=== PATIENT | female | born 1995 | race African-American/Black ===

== ENCOUNTER 2017-12-16 12:17 | Emergency (ER) | payer SELFPAY ==
[2017-12-16 13:15] LABS: INFLUENZA A PATIENT NEGATIVE (NEGATIVE); INFLUENZA B PATIENT NEGATIVE (NEGATIVE); OBC FLU VALID
[2017-12-16] MEDS: IV NORMAL SALINE 1000ML BAG 1,000 ML IV ×2 (13:45)
[2017-12-16 14:35] LABS: FECAL OB PT NEGATIVE (NEG); NEG OBC FOB NEG; POS OBC FOB POS
[2017-12-16 15:02] LABS: ADD MAN DIFF? NO
[2017-12-16 15:05] LABS: BASO % 0 % (0-3); EOS # 0.1 x10^3/uL (0.0-0.7); EOS % 1 % (0-3); HEMATOCRIT 41.2 % (36.0-47.0); HEMOGLOBIN 13.8 g/dL (12.0-15.5); LYMPH # 1.4 x10^3/uL (1.0-4.8); LYMPH % 15 % (24-48); MEAN CORPUSCULAR HEMOGLOBIN 29 pg (25-35); MEAN CORPUSCULAR HGB CONC 33 g/dL (31-37); MEAN CORPUSCULAR VOLUME 88 fL (79-100); MONO # 0.7 x10^3/uL (0.0-1.1); MONO % 8 % (0-9); NEUT # 7.2 x10^3uL (1.8-7.7); NEUT % 77 % (31-73); PLATELET COUNT 236 x10^3/uL (140-400); RED CELL DISTRIBUTION WIDTH 12.2 % (11.5-14.5); WHITE BLOOD COUNT 9.3 x10^3/uL (4.0-11.0)
== END 2017-12-16 15:43 | disposition home or self-care (01) ==
LOC: ER 12:17
DX: B34.9 Viral infection, unspecified (principal); J45.909 Unspecified asthma, uncomplicated; E03.9 Hypothyroidism, unspecified; Z88.6 Allergy status to analgesic agent
CPT/HCPCS: 36415; 82274; 85025; 87804; 87804-59; 96360; 96361; 99285-25; J7030

== ENCOUNTER 2018-01-30 19:24 | Emergency (ER) | payer SELFPAY ==
[2018-01-30 20:16] LABS: URINE HCG POC HCG NEGATIVE (Negative)
[2018-01-30 20:20] LABS: BILIRUBIN,URINE NEGATIVE (NEG); CLARITY,URINE CLEAR; COLOR,URINE YELLOW; GLUCOSE,URINE NEGATIVE (NEG); NITRITE,URINE NEGATIVE (NEG); PH,URINE 6.5; PROTEIN,URINE NEGATIVE (NEG-TRACE)
[2018-01-30 20:26] LABS: BACTERIA,URINE 0 /HPF (0-FEW); SQUAMOUS EPITHELIAL CELL,UR FEW /LPF; WBC,URINE 0 /HPF (0-4)
[2018-01-30 20:58] LABS: ADD MAN DIFF? NO
[2018-01-30 21:00] LABS: BASO % 0 % (0-3); EOS # 0.2 x10^3/uL (0.0-0.7); EOS % 1 % (0-3); HEMATOCRIT 39.6 % (36.0-47.0); HEMOGLOBIN 13.4 g/dL (12.0-15.5); LYMPH # 2.4 x10^3/uL (1.0-4.8); LYMPH % 21 % (24-48); MEAN CORPUSCULAR HEMOGLOBIN 30 pg (25-35); MEAN CORPUSCULAR HGB CONC 34 g/dL (31-37); MEAN CORPUSCULAR VOLUME 87 fL (79-100); MONO # 1.1 x10^3/uL (0.0-1.1); MONO % 9 % (0-9); NEUT # 7.8 x10^3uL (1.8-7.7); NEUT % 68 % (31-73); PLATELET COUNT 289 x10^3/uL (140-400); RED BLOOD COUNT 4.54 x10^6/uL (3.50-5.40); RED CELL DISTRIBUTION WIDTH 12.7 % (11.5-14.5); WHITE BLOOD COUNT 11.5 x10^3/uL (4.0-11.0)
[2018-01-30 21:09] LABS: ANION GAP 7 (6-14); BLOOD UREA NITROGEN 10 mg/dL (7-20); BUN/CREATININE RATIO 14 (6-20); CALCIUM 9.3 mg/dL (8.5-10.1); CARBON DIOXIDE 27 mmol/L (21-32); CHLORIDE 105 mmol/L (98-107); CREATININE 0.7 mg/dL (0.6-1.0); GFR 127.8; GLUCOSE 103 mg/dL (70-99); POTASSIUM 3.9 mmol/L (3.5-5.1); SODIUM 139 mmol/L (136-145)
[2018-01-30 21:15] LABS: ALBUMIN 3.6 g/dL (3.4-5.0); ALBUMIN/GLOBULIN RATIO 0.8 (1.0-1.7); ALK PHOS 110 U/L (46-116); ALT (SGPT) 27 U/L (14-59); AST (SGOT) 17 U/L (15-37); TOTAL BILIRUBIN 0.2 mg/dL (0.2-1.0); TOTAL PROTEIN 7.9 g/dL (6.4-8.2)
[2018-02-03 15:28] LABS: CHLAMYDIA PROBE Negative (Negative); GC PROBE Negative (Negative)
== END 2018-01-30 23:25 | disposition home or self-care (01) ==
LOC: ER 19:24
DX: N93.9 Abnormal uterine and vaginal bleeding, unspecified (principal); J45.909 Unspecified asthma, uncomplicated; E03.9 Hypothyroidism, unspecified; Z88.6 Allergy status to analgesic agent
CPT/HCPCS: 36415; 76830; 76856; 80053; 81001; 81025; 85025; 87491; 87591; 99285-25; Q0111

== ENCOUNTER 2018-06-26 12:22 | Emergency (ER) | payer OTHER ==
[~2018-06-26] VITALS: Ht 154.9 cm; Wt 95.3 kg
[~2018-06-26 12:22] MED LIST: OSEL75CA PO
[2018-06-26 12:42] VITALS: BP 142/91
[2018-06-26] MEDS ORDERED: KETOROLAC 30 MG/ML VIAL. IV ONE (13:15)
[2018-06-26] MEDS ORDERED: ONDANSETRON PF 4 MG/2 ML VIAL. IV ONE (13:15)
[2018-06-26 13:19] LABS: BILIRUBIN,URINE NEGATIVE (NEG); CLARITY,URINE CLEAR; COLOR,URINE YELLOW; NITRITE,URINE NEGATIVE (NEG); PROTEIN,URINE NEGATIVE (NEG-TRACE); UROBILINOGEN,URINE 0.2 mg/dL (0.2 mg/dL)
[2018-06-26 13:29] LABS: BACTERIA,URINE 0 /HPF (0-FEW); RBC,URINE 0 /HPF (0-2); SQUAMOUS EPITHELIAL CELL,UR OCC /LPF; WBC,URINE 0 /HPF (0-4)
[2018-06-26] MEDS ORDERED: ONDANSETRON ODT 4 MG TAB.RAPDIS. PO ONE (14:00)
[2018-06-26] MEDS ORDERED: IV NORMAL SALINE 1000ML BAG 1,000 ML IV ONE (14:30)
--- NOTE | 2018-06-26 15:40 | PHYS DOC ---
Past Medical History Past Medical History: Asthma, Hypothyroid Past Surgical History: No Surgical History Alcohol Use: None Drug Use: None Adult General Chief Complaint Chief Complaint: HEADACHE HPI HPI Patient is a 23 year old female who presents with a headache 1 week. The patient states that she was seen at [facility] approximately one week ago for headache. They did a CT scan of her head which was negative. She has not followed up with primary care. She states that she is allergic to acetaminophen and ibuprofen. She states that both of these cause anaphylaxis. Review of Systems Review of Systems Constitutional: Denies fever or chills [] Eyes: Denies change in visual acuity, redness, or eye pain [] HENT: Denies nasal congestion or sore throat [] Respiratory: Denies cough or shortness of breath [] Cardiovascular: No additional information not addressed in HPI [] GI: The patient does have nausea with the headache : Denies dysuria or hematuria [] Musculoskeletal: Denies back pain or joint pain [] Integument: Denies rash or skin lesions [] Neurologic: See history of present illness Endocrine: Denies polyuria or polydipsia [] All other systems were reviewed and found to be within normal limits, except as documented in this note. Current Medications Current Medications Current Medications Medications (Trade) Dose Ordered Sig/[facility] Start Time Stop Time Status Last Admin Dose Admin Ketorolac Tromethamine (Toradol) 30 mg 1X ONCE 06/26/18 13:15 06/26/18 13:16 UNV Ondansetron HCl (Zofran Odt) 4 mg 1X ONCE 06/26/18 14:00 06/26/18 14:01 DC 06/26/18 14:12 4 MG Ondansetron HCl (Zofran) 4 mg 1X ONCE 06/26/18 13:15 06/26/18 13:53 DC Sodium Chloride 1,000 ml @ 1,000 mls/hr 1X ONCE 06/26/18 14:30 06/26/18 15:29 DC 06/26/18 14:26 1,000 MLS/HR Allergies Allergies Allergies Coded Allergies Type Severity Reaction Last Updated Verified ibuprofen Allergy Severe Anaphylaxis 12/16/17 Yes acetaminophen Allergy Intermediate 01/30/18 Yes Physical Exam Physical Exam Constitutional: Well developed, well nourished, no acute distress, non-toxic appearance. [] HENT: Normocephalic, atraumatic, bilateral external ears normal, oropharynx moist, no oral exudates, nose normal. [] Eyes: PERRLA, EOMI, conjunctiva normal, no discharge. [] Neck: Normal range of motion, no tenderness, supple, no stridor. [] Cardiovascular:Heart rate regular rhythm, no murmur [] Lungs & Thorax: Bilateral breath sounds clear to auscultation [] Abdomen: Bowel sounds normal, soft, no tenderness, no masses, no pulsatile masses. [] Skin: Warm, dry, no erythema, no rash. [] Back: No tenderness, no CVA tenderness. [] Extremities: No tenderness, no cyanosis, no clubbing, ROM intact, no edema. [] Neurologic: Alert and oriented X 3, normal motor function, normal sensory function, no focal deficits noted, cranial nerves II through XII are grossly intact. [] Psychologic: Affect normal, judgement normal, mood normal. [] Current Patient Data Vital Signs Vital Signs Date Time Temp Pulse Resp B/P (MAP) Pulse Ox O2 Delivery O2 Flow Rate FiO2 06/26/18 12:42 98.1 92 18 142/91 (108) 97 Room Air 98.1 Lab Values Laboratory Tests Test 06/26/18 12:42 06/26/18 12:48 Urine Collection Type Void Urine Color Yellow Urine Clarity Clear Urine pH 6.0 Urine Specific [place] 1.020 Urine Protein Negative mg/dL (NEG-TRACE) Urine Glucose (UA) Negative mg/dL (NEG) Urine Ketones (Stick) Negative mg/dL (NEG) Urine Blood Negative (NEG) Urine Nitrite Negative (NEG) Urine Bilirubin Negative (NEG) Urine Urobilinogen Dipstick 0.2 mg/dL (0.2 mg/dL) Urine Leukocyte Esterase Negative (NEG) Urine RBC 0 /HPF (0-2) Urine WBC 0 /HPF (0-4) Urine Squamous Epithelial Cells Occ /LPF Urine Bacteria 0 /HPF (0-FEW) POC Urine HCG, Qualitative Hcg negative (Negative) EKG EKG [] Radiology/Procedures Radiology/Procedures [] Course & Med Decision Making Course & Med Decision Making Pertinent Labs and Imaging studies reviewed. (See chart for details) []The patient received a liter fluids and Zofran in the emergency department with resolution of her headache. Dragon Disclaimer Dragon Disclaimer This electronic medical record was generated, in whole or in part, using a voice recognition dictation system. Departure Departure Impression: Primary Impression: Headache Disposition: 01 HOME, SELF-CARE Condition: STABLE Referrals: NO PCP (PCP) Patient Instructions: General Headache Without Cause Additional Instructions: Follow-up with your primary care provider for further evaluation of your chronic headaches. If worsening please return to the emergency department. DALY PALMA APRN Jun 26, 2018 15:40
== END 2018-06-26 15:51 | disposition home or self-care (01) ==
LOC: ER 12:22
DX: R51 Headache (principal); R11.0 Nausea; J45.909 Unspecified asthma, uncomplicated; E03.9 Hypothyroidism, unspecified; Z88.6 Allergy status to analgesic agent; Z88.8 Allergy status to other drugs, medicaments and biological substances
CPT/HCPCS: 81001; 81025; 99284; J7030; Q0162

== ENCOUNTER 2018-07-02 05:54 | Emergency (ER) | payer OTHER ==
[~2018-07-02] VITALS: Ht 154.9 cm; Wt 95.3 kg
--- NOTE | 2018-07-02 06:25 | PHYS DOC ---
Past Medical History Past Medical History: Asthma, Hypothyroid Past Surgical History: No Surgical History Alcohol Use: None Drug Use: None Adult General Chief Complaint Chief Complaint: ABDOMINAL PAIN HPI HPI Patient is a 23 year old who presents to the ER for evaluation of lower abdominal cramping. Patient reports onset yesterday with onset of her menstrual cycle. Patient reports some history of similar episodes in the past but not as severe. Patient reports allergy to ibuprofen and Tylenol. Pain is 4 out of 10, cramping, no radiation, suprapubic. Reports typical vaginal bleeding volume. Review of Systems Review of Systems Constitutional: Denies fever or chills [] Eyes: Denies change in visual acuity, redness, or eye pain [] HENT: Denies nasal congestion or sore throat [] Respiratory: Denies cough or shortness of breath [] Cardiovascular: Chest pain, no lower extremity edema, no orthopnea GI: Dull pain present. No nausea, no vomiting, no GI bleed symptoms : Denies dysuria or hematuria [] Musculoskeletal: Denies back pain or joint pain [] Integument: Denies rash or skin lesions [] Neurologic: Denies headache, focal weakness or sensory changes [] Endocrine: Denies polyuria or polydipsia [] All other systems were reviewed and found to be within normal limits, except as documented in this note. Current Medications Current Medications Current Medications Medications (Trade) Dose Ordered Sig/[facility] Start Time Stop Time Status Last Admin Dose Admin Morphine Sulfate (Morphine Sulfate) 5 mg 1X ONCE 07/02/18 06:30 07/02/18 06:31 DC Allergies Allergies Allergies Coded Allergies Type Severity Reaction Last Updated Verified ibuprofen Allergy Severe Anaphylaxis 12/16/17 Yes acetaminophen Allergy Intermediate 01/30/18 Yes Physical Exam Physical Exam Constitutional: Obese HENT: Normocephalic, atraumatic, Neck: no stridor. [] Cardiovascular:Heart rate regular rhythm, no murmur [] Lungs & Thorax: Bilateral breath sounds clear to auscultation [] Abdomen: Bowel sounds normal, soft, mild suprapubic tenderness, no masses, no pulsatile masses. [] Skin: Warm, dry, no erythema, no rash. [] Back: No tenderness, no CVA tenderness. [] Extremities: No tenderness, no cyanosis, no clubbing, ROM intact, no edema. [] Neurologic: Alert and oriented X 3, no focal deficits noted. [] Psychologic: Affect normal, judgement normal, mood normal. [] Current Patient Data Vital Signs Vital Signs Date Time Temp Pulse Resp B/P (MAP) Pulse Ox O2 Delivery O2 Flow Rate FiO2 07/02/18 06:09 98.8 90 22 157/89 (111) 98 Room Air 98.8 Lab Values Laboratory Tests Test 07/02/18 06:00 07/02/18 06:11 Urine Collection Type Unknown Urine Color Yellow Urine Clarity Clear Urine pH 7.0 Urine Specific [place] 1.010 Urine Protein Negative mg/dL (NEG-TRACE) Urine Glucose (UA) Negative mg/dL (NEG) Urine Ketones (Stick) Negative mg/dL (NEG) Urine Blood Large (NEG) Urine Nitrite Negative (NEG) Urine Bilirubin Negative (NEG) Urine Urobilinogen Dipstick 0.2 mg/dL (0.2 mg/dL) Urine Leukocyte Esterase Trace (NEG) Urine RBC >40 /HPF (0-2) Urine WBC 0 /HPF (0-4) Urine Squamous Epithelial Cells Few /LPF Urine Bacteria 0 /HPF (0-FEW) POC Urine HCG, Qualitative Hcg negative (Negative) EKG EKG [] Radiology/Procedures Radiology/Procedures [] Course & Med Decision Making Course & Med Decision Making Pertinent Labs and Imaging studies reviewed. (See chart for details) []Patient not . Blood and urine consistent with current menstrual cycle. Patient with no flank pain. No UTI. Reporting anaphylactic allergies to ibuprofen and Tylenol. Patient was given an IM shot of morphine but advised that narcotics would not be prescribed for menstrual cycle. Patient advised follow-up with TECHNICAL SYSTEM ANALYST. ER return precautions given. Patient verbalized understanding. All questions answered. Dragon Disclaimer Dragon Disclaimer This electronic medical record was generated, in whole or in part, using a voice recognition dictation system. Departure Departure Impression: Primary Impression: Dysmenorrhea Disposition: HOME, SELF-CARE Condition: STABLE Referrals: NO PCP (PCP) YANELY TAYLOR MD Patient Instructions: Dysmenorrhea, [id number] Additional Instructions: Thank you for coming to [facility]. Please repeat the attached handouts. Please follow-up with your primary care physician. Return to the ER if your symptoms worsen or you have any other concerns. RUDOLPH SNYDER DO Jul 02, 2018 06:25
[2018-07-02] MEDS ORDERED: MORPHINE SULFATE 10 MG/ML VIAL. IM ONE (06:30)
[2018-07-02 06:38] LABS: BILIRUBIN,URINE NEGATIVE (NEG); CLARITY,URINE CLEAR; COLOR,URINE YELLOW; NITRITE,URINE NEGATIVE (NEG); PROTEIN,URINE NEGATIVE (NEG-TRACE); UROBILINOGEN,URINE 0.2 mg/dL (0.2 mg/dL)
[2018-07-02 07:05] LABS: BACTERIA,URINE 0 /HPF (0-FEW); RBC,URINE >40 /HPF (0-2); SQUAMOUS EPITHELIAL CELL,UR FEW /LPF; WBC,URINE 0 /HPF (0-4)
[2018-07-02 07:28] VITALS: BP 157/89
== END 2018-07-02 07:25 | disposition home or self-care (01) ==
LOC: ER 05:54
DX: N94.6 Dysmenorrhea, unspecified (principal); N93.9 Abnormal uterine and vaginal bleeding, unspecified; R10.30 Lower abdominal pain, unspecified; Z88.6 Allergy status to analgesic agent; J45.909 Unspecified asthma, uncomplicated; E03.9 Hypothyroidism, unspecified
CPT/HCPCS: 81001; 81025; 87086; 99284

== ENCOUNTER 2019-11-26 19:40 | Emergency (ER) | payer MEDICAID, OTHER ==
[~2019-11-26] VITALS: Ht 157.5 cm; Wt 112.0 kg
[2019-11-26 20:32] VITALS: BP 136/90
--- NOTE | 2019-11-26 22:04 | RAD ---
Examination: 4 views of the left knee, 3 views of the left foot HISTORY: History of fall COMPARISON: None available FINDINGS: The alignment of the knee joint grossly appears unremarkable. There is no acute fracture or dislocation identified. The alignment of the tarsal joints, tarsometatarsal joints, interphalangeal joints grossly appears unremarkable. IMPRESSION: No acute osseous findings. Electronically signed by: Maurilio Matamoros MD (11/26/2019 10:01 PM) [facility]
[2019-11-26] MEDS ORDERED: METH4TAB2 PO (22:41)
--- NOTE | 2019-11-26 22:41 | PHYS DOC ---
Past Medical History Past Medical History: Asthma, Hypothyroid (SINDI OMER APRN) Past Surgical History: No Surgical History (SINDI OMER APRN) Alcohol Use: None Drug Use: None (SINDI OMER APRN) Attending Signature I have participated in the care of this patient and I have reviewed and agree with all pertinent clinical information above including history, exam, and recommendations. (REMY CRUMP MD) Adult General Chief Complaint Chief Complaint: LOWEREXTREMITY INJURY HPI HPI Patient is a 24 year old female who presents to the ED today complaining of a sharp intermittent 7 out of 10 left knee and left foot pain that began this evening after she fell down 5 steps. Patient denies any loss of consciousness. She states the pain is worse on touching her knee. Denies anything specifically relieving the pain. (SINDI OMER APRN) Review of Systems Review of Systems Constitutional: Denies fever or chills [] Musculoskeletal: Reports left knee and left ankle pain Integument: Denies rash or skin lesions [] Neurologic: Denies headache, focal weakness or sensory changes [] All other systems were reviewed and found to be within normal limits, except as documented in this note. (SINDI OMER APRN) Allergies Allergies Allergies Coded Allergies Type Severity Reaction Last Updated Verified ibuprofen Allergy Severe Anaphylaxis 12/16/17 Yes acetaminophen Allergy Intermediate 01/30/18 Yes (REMY CRUMP MD) Physical Exam Physical Exam Constitutional: Well developed, well nourished, no acute distress, non-toxic appearance. [] Skin: Warm, dry, no erythema, no rash. [] Back: No tenderness, no CVA tenderness. [] Extremities: Left lower extremity with no obvious deformity. Tenderness on palpation of the left anterior ankle. Full range of motion to the left foot and left ankle. +2 left pedal pulse. Cap refill less than 2 seconds the left lower extremity. Neurologic: Alert and oriented X 3, normal motor function, normal sensory fu nction, no focal deficits noted. [] Psychologic: Affect normal, judgement normal, mood normal. [] (SINDI OMER APRN) Current Patient Data Vital Signs Vital Signs Date Time Temp Pulse Resp B/P (MAP) Pulse Ox O2 Delivery O2 Flow Rate FiO2 11/26/19 20:32 98.8 90 18 136/90 (105) 98 Room Air 98.8 (REMY CRUMP MD) EKG EKG [] (SINDI OMER APRN) Radiology/Procedures Radiology/Procedures []PROCEDURE: FOOT LEFT 3V Examination: 4 views of the left knee, 3 views of the left foot HISTORY: History of fall COMPARISON: None available FINDINGS: The alignment of the knee joint grossly appears unremarkable. There is no acute fracture or dislocation identified. The alignment of the tarsal joints, tarsometatarsal joints, interphalangeal joints grossly appears unremarkable. IMPRESSION: No acute osseous findings. Electronically signed by: Maurilio Matamoros MD (11/26/2019 10:01 PM) [facility] DICTATED and SIGNED BY: MAURILIO MATAMOROS MD DATE: 11/26/192200 PROCEDURE: KNEE LEFT 4V Examination: 4 views of the left knee, 3 views of the left foot HISTORY: History of fall COMPARISON: None available FINDINGS: The alignment of the knee joint grossly appears unremarkable. There is no acute fracture or dislocation identified. The alignment of the tarsal joints, tarsometatarsal joints, interphalangeal joints grossly appears unremarkable. IMPRESSION: No acute osseous findings. Electronically signed by: Maurilio Matamoros MD (11/26/2019 10:01 PM) [facility] DICTATED and SIGNED BY: MAURILIO MATAMOROS MD DATE: 11/26/192200 (SINDI OMER APRN) Course & Med Decision Making Course & Med Decision Making Pertinent Labs and Imaging studies reviewed. (See chart for details) This is a 24-year-old female patient presenting to the ED today with left knee and left foot pain status post falling down some steps. Left knee and left foot x-rays interpreted by radiologist are negative for any acute findings. Ice elevation encouraged. OTC pain relievers. Follow-up with orthopedic doctor in one week (SINDI OMER APRN) Dragon Disclaimer Dragon Disclaimer This electronic medical record was generated, in whole or in part, using a voice recognition dictation system. (SINID OMER APRN) Departure Departure Impression: Primary Impression: Fall Additional Impressions: Left knee sprain Sprain of left foot Disposition: HOME, SELF-CARE Condition: STABLE Referrals: NO PCP (PCP) DEANDRE CROCKETT MD follow up with your doctor or the provided orthopedic doctor in 1 week if pain persist. Patient Instructions: Joint Sprain Additional Instructions: You were evaluated in the medicine for left foot and left knee sprain. Your x- rays of the left knee and left foot were negative for any acute findings. Try to ice and elevate the extremity. You can take [id number] pain relievers as needed for pain. We also wrote you a prescription for Medrol Dosepak. It will assist with the pain and inflammation. Please follow-up with your own doctor the provided orthopedic doctor in one week if pain persist Scripts Methylprednisolone (MEDROL) 4 Mg Tab.ds.pk 1 PKG PO UD, #1 PKG Prov: RYANBashirSINDI SENIOR [employer] SOFTWARE ENGINEER 11/26/19 Problem Qualifiers Primary Impression: Fall Encounter type: initial encounter Qualified Codes: W19.XXXA - Unspecified fall, initial encounter Additional Impressions: Left knee sprain Encounter type: initial encounter Involved ligament of knee: unspecified ligament Qualified Codes: S83.92XA - Sprain of unspecified site of left knee, initial encounter Sprain of left foot Encounter type: initial encounter Qualified Codes: S93.602A - Unspecified sprain of left foot, initial encounter SINDI OMER SENIOR [employer]OS SOFTWARE ENGINEER Nov 26, 2019 22:41 REMY CRUMP MD Nov 27, 2019 02:21
== END 2019-11-26 22:48 | disposition home or self-care (01) ==
LOC: ER 19:40
DX: S83.92XA Sprain of unspecified site of left knee, initial encounter (principal); S93.602A Unspecified sprain of left foot, initial encounter; J45.909 Unspecified asthma, uncomplicated; E03.9 Hypothyroidism, unspecified; Z88.6 Allergy status to analgesic agent; Z88.8 Allergy status to other drugs, medicaments and biological substances; W10.8XXA Fall (on) (from) other stairs and steps, initial encounter; Y93.89 Activity, other specified; Y92.89 Other specified places as the place of occurrence of the external cause; Y99.8 Other external cause status
CPT/HCPCS: 73564; 73630; 99284